=== PATIENT | male | born 1950 | race Caucasian/White ===

== ENCOUNTER 2017-02-16 11:04 | Observation (INO) | payer MEDICARE ==
[2017-02-16 11:13] VITALS: BMI 24.1
[2017-02-16] MEDS ORDERED: ASPIRIN 81 MG CHEWABLE TABLETS PO ONE (12:05)
--- NOTE | 2017-02-16 12:21 | PDOC ---
History of Present Illness - General History Source: Patient, Family Exam Limitations: No Limitations <Mateusz Morse - Last Filed: 02/16/17 14:35> <Aftab Aguila - Last Filed: 02/17/17 09:49> - General Chief Complaint: Chest Pain Stated Complaint: CHEST PAIN,SOB Time Seen by Provider: 02/16/17 12:01 - History of Present Illness Initial Comments: 02/16/17 14:21 The patient is a 66 year old male, accompanied by family member, with a significant past medical history of CHF(EF initially 18% and has improved to 36% ) and MIs (X2), who presents to the emergency department complaining of dizziness earlier this morning. As per family member, the patient woke up feeling fine this morning, but appeared pale and a bit nauseous. Patient reports he was able to bring his granddaughter to school this morning and had no other symptoms at the time. He states when he returned home to shower, he began to feel dizzy. He denies any changes in vision, head trauma, or LOC. As per , the patient was staring off and was diaphoretic. Patient reports taking his CHF medication at 08:00, which is different from when he normally takes it. Patient reports his symptoms lasted approximately 2 hours and have resolved since arriving to the ED. The patient denies any chest pain, shortness of breath, or palpitations. The patient denies any abdominal pain, vomiting, diarrhea, or constipation. The patient denies any dysuria, hematuria, frequency , or urgency. The patient denies any fever, chills, cough, or headache. Allergies: NKDA Past Surgical History: None reported Social History. Former smoker and ETOH use. No recreational drug use. PCP: Dr. Hassan Lamination Operator: Dr. Isaac Bess (Mateusz Morse) Past History <Mateusz Morse - Last Filed: 02/16/17 14:35> - Past Medical History COPD: Yes Hypercholesterolemia: Yes - Surgical History Cholecystectomy: Yes - Psycho/Social/Smoking Cessation Hx Anxiety: No Suicidal Ideation: No Smoking Status: Yes Smoking History: Former smoker Have you smoked in the past 12 months: Yes Number of Cigarettes Smoked Daily: 20 If you are a former smoker, when did you quit?: 2016 Information on smoking cessation initiated: No 'Breaking Loose' booklet given: 07/26/16 Hx Alcohol Use: Yes <Aftab Aguila - Last Filed: 02/17/17 09:49> - Past Medical History Allergies/Adverse Reactions: Allergies Allergy/AdvReac Type Severity Reaction Status Date / Time No Known Allergies Allergy Verified 02/16/17 12:26 Home Medications: Ambulatory Orders Atorvastatin Calcium [Lipitor] 40 mg PO DAILY 04/01/13 Bupropion HCl [Wellbutrin Xl -] 150 mg PO DAILY 02/16/17 Sacubitril/Valsartan [Entresto 97 mg-103 mg Tablet] 1 each PO DAILY 02/16/17 Spironolactone 25 mg PO DAILY 02/16/17 Review of Systems - Review of Systems Able to Perform ROS?: Yes <Mateusz Morse - Last Filed: 02/16/17 14:35> <Aftab Aguila - Last Filed: 02/17/17 09:49> - Review of Systems Comments:: 02/16/17 14:21 CONSTITUTIONAL: Present: +Pale, +Diaphoresis No reported: Fever, Chills, Generalized Weakness, Malaise, Loss of Appetite HEENT: No reported: Rhinorrhea, Nasal Congestion, Throat Pain, Throat Swelling, Difficulty Swallowing, Mouth Swelling, Ear Pain, Eye Pain CARDIOVASCULAR: No reported: Chest Pain, Syncope, Palpitations, Irregular Heart Rate, Lightheadedness, Peripheral Edema RESPIRATORY: No reported: Cough, Shortness of Breath, SOB with Exertion, Orthopnea, Wheezing , Stridor, Hemoptysis GASTROINTESTINAL: Present: + Nausea No reported: Abdominal pain, Abdominal Distension, Vomiting, Diarrhea, Constipation, Melena, Hematochezia GENITOURINARY: No reported: Dysuria, Frequency, Urgency, Hesitancy, Flank Pain, Genital Pain MUSCULOSKELETAL: No reported: Myalgia, Arthralgia, Joint Swelling, Back pain, Neck Pain SKIN: No reported: Rash, Itching, Pallor HEMEATOLOGIC/IMMUNOLOGIC: No reported: Easy Bleeding, Easy Bruising, Lymphadenopathy, Frequent infections ENDOCRINE: No reported: Unexplained Weight Gain, Unexplained Weight Loss, Heat Intolerance , Cold Intolerance NEUROLOGIC: Present: +Dizziness No reported: Headache, Focal Weakness, Paresthesias, Vertigo, Lightheadedness, Unsteady Gait, Seizure, Mental Status Changes, Incontinence PSYCHIATRIC: No reported: Anxiety, Depression (Mateusz Morse) *Physical Exam <Mateusz Morse - Last Filed: 02/16/17 14:35> <Mingo,Aftab - Last Filed: 02/17/17 09:49> - Vital Signs Last Vital Signs Temp Pulse Resp BP Pulse Ox 98.9 F 70 20 102/61 95 02/17/17 02:07 02/17/17 02:07 02/17/17 02:07 02/17/17 02:07 02/16/17 20:40 - Physical Exam Comments: 02/16/17 14:21 GENERAL: The patient is awake, alert, and fully oriented, Nontoxic - in no acute distress. HEAD: Normocephalic, atraumatic. EYES: extraocular movements intact, sclera anicteric, conjunctiva clear. ENT: Normal voice, Moist mucous membranes. NECK: Normal range of motion, supple LUNGS: Breath sounds equal, clear to auscultation bilaterally. No wheezes, no rhonchi, no rales. HEART: Regular rate and rhythm, without murmur, rub or gallop. ABDOMEN: Soft, nontender, normoactive bowel sounds. No guarding, no rebound.No CVA tenderness EXTREMITIES: Normal range of motion, no edema. No clubbing or cyanosis. No cords, erythema, or tenderness. NEUROLOGICAL: No facial assymetry, Normal speech, PSYCH: Normal mood, normal affect. SKIN: Warm, Dry, normal turgor, (Mateusz Morse) Heart Score/ECG Review <Mateusz Morse - Last Filed: 02/16/17 14:35> <Aftab Aguila - Last Filed: 02/17/17 09:49> - ECG Impressions Comment:: Twelve-lead EKG was performed and reviewed by me. There is normal sinus rhythm with a normal rate. Rate of 61 The axis is normal. The intervals are normal. There is normal R wave progression Flipped T waves in 1 and aVL (Aftab Aguila) ED Treatment Course - LABORATORY CBC & Chemistry Diagram: 02/16/17 12:05 02/16/17 12:05 <Mateusz Morse - Last Filed: 02/16/17 14:35> - LABORATORY CBC & Chemistry Diagram: 02/16/17 12:05 02/17/17 05:35 <Aftab Aguila - Last Filed: 02/17/17 09:49> - ADDITIONAL ORDERS Additional order review: 02/16/17 12:05 RBC 4.26 MCV 84.9 MCHC 34.2 RDW 12.6 MPV 7.7 D Neutrophils % 76.4 Lymphocytes % 16.6 D Monocytes % 5.2 Eosinophils % 1.0 D Basophils % 0.8 - RADIOLOGY Radiology Studies Ordered: Category Date Time Status CHEST PA & LAT [RAD] Stat Radiology 02/16/17 12:05 Completed - Medications Given in the ED: ED Medications Discontinued Medications Generic Name Dose Route Start Last Admin Trade Name Freq PRN Reason Stop Dose Admin Aspirin 162 mg 02/16/17 12:05 02/16/17 12:57 Asa - PO 02/16/17 12:06 162 mg ONCE ONE Administration Sodium Chloride 1,000 mls @ 75 mls/hr 02/16/17 18:32 02/16/17 18:34 Normal Saline - IV 02/17/17 07:51 75 mls/hr ASDIR ONE Administration Medical Decision Making <Mateusz Morse - Last Filed: 02/16/17 14:35> <Aftab Aguila - Last Filed: 02/17/17 09:49> - Medical Decision Making 02/16/17 14:35 First call placed to Dr. Santiago at 14:35. Awaiting call back. (Mateusz Morse) 02/16/17 12:43 66y M hx of CAD, CHF EF 38%, presents with episode of lightheadedness, nausea, midl diaphoresis lasting approx 2 hrs, and was told to come to the ED by PMD. pt states he feels well currently, no associated cp, headache, abd pain, back pain, neck pain. on exam pt appears well suspect possible presyncope ?arrythmia, anemia, metabolic dernagement will ck labs pt on cardiac monitro will obtain ekg will d/w cardiology consider observation in light of his significant CHF in the past A portion of this note was documented by scribe services under my direction. I have reviewed the details of the note, within reason, and agree with the documentation with the following case summary and management plan written by me (Aftab Aguila) *DC/Admit/Observation/Transfer <Mateusz Morse - Last Filed: 02/16/17 14:35> - Discharge Dispostion Admit: Yes <Aftab Aguila - Last Filed: 02/17/17 09:49> Diagnosis at time of Disposition: Pre-syncope - Discharge Dispostion Condition at time of disposition: Stable - Referrals - Attestations Scribe Attestion: 02/16/17 14:22 Documentation prepared by Mateusz Morse, acting as medical education manager for Aftab Aguila MD. (Mateusz Morse)
[2017-02-16 12:54] LABS: ALBUMIN 4.3 g/dl (3.4-5.0); ANION GAP 14 (8-16); BILIRUBIN,TOTAL 0.5 mg/dL (0.2-1.0); CO2 24 mmol/L (21-32); COCKROFT - GAULT 51.97; CREATININE 1.2 mg/dL (0.7-1.3); GLUCOSE,RANDOM 153 mg/dL (74-106); MAGNESIUM 2.1 mg/dL (1.8-2.4); SGOT/AST 21 U/L (15-37); SGPT/ALT 38 U/L (12-78)
[2017-02-16 12:56] LABS: ALK PHOS 67 U/L (45-117); TROPONIN I < 0.02 ng/ml (0.00-0.05)
[2017-02-16] MEDS ORDERED: ASPIRIN 81 MG CHEWABLE TABLETS ONE (12:57)
--- NOTE | 2017-02-16 13:03 | CON.CARD ---
Consult Consult Specialty:: Cardiology Referred by:: MART - Aftab Aguila MD Reason for Consultation:: Near syncope - History of Present Illness Chief Complaint: Near syncope History of Present Illness: Patient is a 66 year old male with underlying history of ischemic cardiomyopathy (LVEF 38%), COPD, hypertension and hypercholesterolemia who presented to ED with near without true syncope while eating along with pallor, nausea and diaphoresis. He denies chest pain, palpitations, flushing, visual scotoma, paroxysmal nocturnal dyspnea or orthopnea, or LE edema. Symptoms have since abated, feels back at baseline. - History Source History Provided By: Patient Limitations to Obtaining History: No Limitations - Past Medical History Cardio/Vascular: Yes: CAD, CHF, Hyperlipdemia Pulmonary: Yes: COPD - Past Surgical History Past Surgical History: Yes: Cholecystectomy - Alcohol/Substance Use Hx Alcohol Use: Yes History of Substance Use: reports: None - Smoking History Smoking history: Former smoker Have you smoked in the past 12 months: Yes Aproximately how many cigarettes per day: 20 If you are a former smoker, when did you quit?: 2016 Home Medications - Allergies Allergies/Adverse Reactions: Allergies Allergy/AdvReac Type Severity Reaction Status Date / Time No Known Allergies Allergy Verified 02/16/17 12:26 - Home Medications Home Medications: Ambulatory Orders Atorvastatin Calcium [Lipitor] 40 mg PO DAILY 04/01/13 Bupropion HCl [Wellbutrin Xl -] 150 mg PO DAILY 02/16/17 Sacubitril/Valsartan [Entresto 97 mg-103 mg Tablet] 1 each PO DAILY 02/16/17 Spironolactone 25 mg PO DAILY 02/16/17 Family Disease History - Family Disease History Family Disease History: Diabetes: Mother (Cervical CA at age 70), CA: Father (Lung CA at age 68), Mother, Brother (Throat CA), Sister ( Breast CA) Review of Systems - Review of Systems Constitutional: reports: Diaphoresis Gastrointestinal: reports: Nausea Neurological: reports: Dizziness Vital Signs: Vital Signs Temperature 97.7 F 02/16/17 11:11 Pulse Rate 62 02/16/17 11:11 Respiratory Rate 18 02/16/17 11:11 Blood Pressure 134/61 02/16/17 11:11 O2 Sat by Pulse Oximetry (%) 98 02/16/17 12:22 Constitutional: Yes: No Distress, Calm Neck: Yes: Supple Respiratory: Yes: Regular, CTA Bilaterally Gastrointestinal: Yes: Normal Bowel Sounds, Soft Cardiovascular: Yes: Regular Rate and Rhythm JVD: No Carotid Bruit: No Heart Sounds: Yes: S1, S2 Murmur: Yes: Systolic Murmur, Grade 1 Edema: No - Other Data Labs, Other Data: CBC, BMP 02/16/17 12:05 Troponin, BNP 02/16/17 12:05 Troponin I < 0.02 Troponin, BNP 02/16/17 12:05 Troponin I < 0.02 NSR @ 61 lateral T wave changes Prior Cardiac Procedures: Cardiac Catheterization Ejection Fraction %: LVEF < 40 % Imaging - Results Chest X-ray: Report Reviewed (NAD) Problem List - Problems (1) Pre-syncope Code(s): R55 - SYNCOPE AND COLLAPSE (2) Coronary artery disease Code(s): I25.10 - ATHSCL HEART DISEASE OF [place] CORONARY ARTERY W/O ANG PCTRS Qualifiers: Coronary Disease-Associated Artery/Lesion type: [place] artery [place] vs. transplanted heart: [place] heart Associated angina: without angina Qualified Code(s): I25.10 - Atherosclerotic heart disease of [place] coronary artery without angina pectoris (3) Hypercholesterolemia Code(s): E78.0 - PURE HYPERCHOLESTEROLEMIA * DO NOT USE * (4) Severe left ventricular systolic dysfunction Code(s): I51.9 - HEART DISEASE, UNSPECIFIED (5) Ischemic cardiomyopathy Code(s): I25.5 - ISCHEMIC CARDIOMYOPATHY (6) Old inferolateral myocardial infarction Code(s): I25.2 - OLD MYOCARDIAL INFARCTION (7) COPD (chronic obstructive pulmonary disease) Code(s): J44.9 - CHRONIC OBSTRUCTIVE PULMONARY DISEASE, UNSPECIFIED Qualifiers : COPD type: unspecified COPD Qualified Code(s): J44.9 - Chronic obstructive pulmonary disease, unspecified (8) Hyponatremia Code(s): E87.1 - HYPO-OSMOLALITY AND HYPONATREMIA Assessment/Plan 11/15/2016 MUGA scan: severely reduced LV systolic function with severe inferior , inferoapical, periapical and inferolateral HK, LVEF 38% 07/29/2016 R[facility]LHc at [facility], mildly elevated right sided pressures, 3 vessel CAD (70-80% mid and distal LAD,100% LCx-HL fills via left->left collaterals, 100% mid RCA BULB WEEDER fills via left->right collaterals, severely decreased LVEF 10-15%, mild-mod MR, markedly elevated LVEDP 45 decreased to 26 post NTG, Mynx deployed right [employer]NAGER access site. Will undergo IV diuresis, LifeVest fitting, viability study once euvolemic to assess revascularization options. 1. Near syncope likely neurocardiogenic +/- medication effects 2. Ischemic cardiomyopathy LVEF 38% with h/o failure 3. CAD post [place], angina pectoris 4. HTN/HCVD 5. Hypercholesterolemia 6. Hyponatremia PLAN: 1. Check orthostatic VS, lunchroom monitor to r/o sustained arrhythmias or pauses 2. Continue Aspirin 81 mg, Entresto 97/103 mg bid, carvedilol 12.5 bid, Aldactone 25 qd, Lipitor 40 qd 3. Counselled on abortive manuevers once prodromal symptoms have been experienced. 4. Thank you for consultative opportunity
[2017-02-16 13:10] LABS: BASOPHIL 0.8 % (0-2.0); MCHC 34.2 g/dl (32.0-35.9); MEAN CELL VOLUME 84.9 fl (80-96); MEAN PLT VOLUME 7.7 fl (7.5-11.1); NEUTROPHILS 76.4 % (42.8-82.8); PLATELET COUNT 270 K/MM3 (134-434); RDW 12.6 % (11.9-15.9); WHITE BLOOD COUNT 9.4 K/mm3 (4.0-10.0)
[2017-02-16 13:37] LABS: INR 1.1 (0.82-1.09); PROTHROMBIN TIME (PATIENT) 12.1 SEC (9.98-11.88)
--- NOTE | 2017-02-16 13:46 | EKG ---
Test Reason : Blood Pressure : / mmHG Vent. Rate : 061 BPM Atrial Rate : 061 BPM P-R Int : 160 ms QRS Dur : 100 ms QT Int : 412 ms P-R-T Axes : 054 042 115 degrees QTc Int : 414 ms NORMAL SINUS RHYTHM T WAVE ABNORMALITY, CONSIDER LATERAL ISCHEMIA ABNORMAL ECG WHEN COMPARED WITH ECG OF 26-JUL-2016 09:27, PREMATURE VENTRICULAR COMPLEXES ARE NO LONGER PRESENT T WAVE INVERSION NO LONGER EVIDENT IN ANTERIOR LEADS QT HAS SHORTENED Confirmed by ABELARDO LIZ MD ([id number]) on 02/16/2017 1:46:34 PM Referred By: Confirmed By:ABELARDO LIZ MD
[2017-02-16] MEDS ORDERED: SODIUM CHLORIDE 1,000 ML IV ONE (18:32)
[2017-02-16] MEDS ORDERED: PNEUMOC 13-VAL CONJ-DIP CRM/PF 0.5 ML DISP.SYRIN IM ONE (21:02)
[2017-02-16] MEDS ORDERED: ATORVASTATIN CA 40 MG TABLET (FP) PO SCH (22:00)
[2017-02-16] MEDS: CARVEDILOL 12.5 MG TABLET (FP) PO SCH (23:00)
[2017-02-16] MEDS: SACUBITRIL/VALSARTAN 97 MG-103 MG TABLET PO SCH (23:00)
[2017-02-17 07:53] LABS: CALCIUM 8.8 mg/dL (8.5-10.1); COCKROFT - GAULT 56.95; CREATININE 1.1 mg/dL (0.7-1.3); THYROID STIMULATING HORMONE 1.75 uIU/ml (0.358-3.74)
[2017-02-17] MEDS ORDERED: ASPIRIN 81 MG CHEWABLE TABLETS PO SCH (10:00)
[2017-02-17] MEDS ORDERED: SPIRONOLACTONE 25 MG TABLET (FP) PO SCH (10:00)
[2017-02-17] MEDS: CARVEDILOL 12.5 MG TABLET (FP) PO SCH (10:05)
[2017-02-17] MEDS: SACUBITRIL/VALSARTAN 97 MG-103 MG TABLET PO SCH (10:07)
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
--- NOTE | 2017-02-17 11:01 | PN ---
Progress Note (short form) - Note Progress Note: appreciate cardiac input patietn with no complaints no CP /SOB/ Lightheadedness patient was ambulating in the hallway thia am - asymptomatic monitoring analyst no significant arrhythmia (pairs and PVCs) Vital Signs Period Temp Pulse Resp BP Sys/[place] Pulse Ox Last 24 Hr 97.7 F-98.9 F 58-70 18-20 102-139/60-75 95-100 neck supple heart reg S1/S2 lungs clear bilat abd soft non tender ext no edema / no calf tenderness CBC, BMP 02/16/17 12:05 02/17/17 05:35 Active Medications Aspirin (Asa -) 81 mg PO DAILY [facility] Last Admin: 02/17/17 10:05 Dose: 81 mg Atorvastatin Calcium (Lipitor -) 40 mg PO HS [facility] Last Admin: 02/16/17 23:00 Dose: 40 mg Carvedilol (Coreg -) 12.5 mg PO BID [facility] Last Admin: 02/17/17 10:05 Dose: 12.5 mg Spironolactone (Aldactone -) 25 mg PO DAILY [facility] Last Admin: 02/17/17 10:07 Dose: Not Given Entresto 97/103 information per Cardio 11/15/2016 MUGA scan: severely reduced LV systolic function with severe inferior , inferoapical, periapical and inferolateral HK, LVEF 38% 07/29/2016 R&LHc at [facility], mildly elevated right sided pressures, 3 vessel CAD (70-80% mid and distal LAD,100% LCx-HL fills via left->left collaterals, 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 Will undergo IV diuresis, LifeVest fitting, viability study once euvolemic to assess revascularization options. 1. Near syncope likely neurocardiogenic +/- medication effects 2. Ischemic cardiomyopathy LVEF 38% with h/o failure 3. 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 HTN/HCVD 5. Hypercholesterolemia 6. Hyponatremia PLAN: 1. Check orthostatic VS, monitoring analyst to r/o sustained arrhythmias or pauses 2. Continue Aspirin 81 mg, Entresto 97/103 mg bid, carvedilol 12.5 bid, Aldactone 25 qd, Lipitor 40 qd 3. Counselled on abortive manuevers once prodromal symptoms have been experienced. 4. Thank you for consultative opportunity Care discussed with Dr Camacho he will re asses patiet with plans for probable d/c today Problem List - Problems (1) Hyponatremia Code(s): E87.1 - HYPO-OSMOLALITY AND HYPONATREMIA (2) Ischemic cardiomyopathy Code(s): I25.5 - ISCHEMIC CARDIOMYOPATHY (3) Pre-syncope Code(s): R55 - SYNCOPE AND COLLAPSE (4) Acute left ventricular failure Code(s): I50.1 - LEFT VENTRICULAR FAILURE
--- NOTE | 2017-02-17 15:49 | DS ---
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 Will undergo IV diuresis, LifeVest fitting, viability study once euvolemic to assess revascularization options. 1. Near syncope likely neurocardiogenic +/- medication effects 2. Ischemic cardiomyopathy LVEF 38% with h/o failure 3. 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 HTN/HCVD 5. Hypercholesterolemia 6. Hyponatremia Hopsital stay unremarkable telemetry no significant arhythmia Patient was treated with IV NS @ low hidration for correction of hyponatremia He tolerated IV fluids well, no chf. Na this am 133 from 127. Case discussed with Cardiology will continue current medications and have follow up next week at office . Constitutional: Yes: Well Nourished, No Distress, Calm Eyes: Yes: WNL, Conjunctiva Clear, EOM Intact HENT: Yes: WNL, Atraumatic, Normocephalic Neck: Yes: WNL, Supple, Trachea Midline Cardiovascular: Yes: WNL, Regular Rate and Rhythm Respiratory: Yes: WNL, Regular, CTA Bilaterally Gastrointestinal: Yes: WNL, Normal Bowel Sounds ...Rectal Exam: Yes: WNL Renal/: Yes: WNL Breast(s): Yes: WNL Musculoskeletal: Yes: WNL Extremities: Yes: WNL Edema: No Peripheral Pulses: Right Radial: 2+, Left Doralis Pedis: 2+, Right Dorsalis Pedis: 2+, Left Femoral: 2+, Right Femoral: 2+ Integumentary: Yes: WNL Neurological: Yes: WNL, Alert, Oriented ...Motor Strength: WNL Psychiatric: Yes: WNL, Alert, Oriented Labs: CBC, BMP 02/17/17 05:35 Discharge Summary Reason For Visit: PRE SYNCOPE Current Active Problems Hyponatremia (Acute) Ischemic cardiomyopathy (Acute) Lightheadedness (Acute) Old inferolateral myocardial infarction (Acute) Pre-syncope (Acute) Condition: Stable - Instructions Referrals: Best Hassan [Primary Care Provider] - Disposition: HOME - Home Medications Comprehensive Discharge Medication List: Ambulatory Orders Atorvastatin Calcium [Lipitor] 40 mg PO DAILY 04/01/13 Bupropion HCl [Wellbutrin Xl -] 150 mg PO DAILY 02/16/17 Sacubitril/Valsartan [Entresto 97 mg-103 mg Tablet] 1 each PO DAILY 02/16/17 Spironolactone 25 mg PO DAILY 02/16/17 Aspirin [ASA -] 81 mg PO DAILY tab.chew 02/17/17 Atorvastatin Ca [Lipitor] 40 mg PO HS tablet 02/17/17 Carvedilol [Coreg -] 12.5 mg PO BID tablet 02/17/17 Sacubitril/Valsartan [Entresto 97 mg-103 mg Tablet] 1 tab PO BID tablet Spironolactone [Aldactone -] 25 mg PO DAILY tablet 02/17/17
[2017-02-17 16:22] VITALS: BP 107/54; PULSE 57; TEMP 98.2
== END 2017-02-17 16:51 | disposition home or self-care (01) ==
LOC: JER 11:04 → JERBED 14:40 → J4W 19:20
PROVIDERS: ADMIT Family Medicine; ATTEND Family Medicine
PROC: 3E0337Z Introduction of Electrolytic and Water Balance Substance into Peripheral Vein, Percutaneous Approach (ICD-10-PCS; principal; 2017-02-16)
DX: R55 Syncope and collapse (principal); I25.5 Ischemic cardiomyopathy; I50.9 Heart failure, unspecified; I25.2 Old myocardial infarction; I10 Essential (primary) hypertension; I25.10 Atherosclerotic heart disease of native coronary artery without angina pectoris; I50.1 Left ventricular failure, unspecified; I51.9 Heart disease, unspecified; J44.9 Chronic obstructive pulmonary disease, unspecified; E78.00 Pure hypercholesterolemia, unspecified; E87.1 Hypo-osmolality and hyponatremia; Z87.891 Personal history of nicotine dependence
CPT/HCPCS: 36415; 71020-TC; 80048; 80053; 80061; 82550; 83036; 83721; 83735; 84443; 84484; 85025; 85610; 93005; 93010; 99285-25; G0378

== ENCOUNTER 2022-01-02 22:18 | Inpatient (IN) | payer OTHER ==
[2022-01-02] MEDS ORDERED: CEFTRIAXONE 1 GM in DEXTROSE 5%-WATER - 100 ML IVPB ONE (23:03)
[2022-01-02] MEDS ORDERED: SODIUM CHLORIDE 0.9% 1000 ML INFUS.BAG IV ONE (23:04)
[2022-01-02] MEDS ORDERED: ACETAMINOPHEN 1000 MG/100 ML BAG IVPB ONE (23:06)
[2022-01-02 23:37] LABS: EPI CELLS 31 /uL (0-25.1); HYALINE CASTS 2 /uL (0-3.1); URINE APPEARANCE CLEAR; URINE BACTERIA 22 /uL (0-1359); URINE BILIRUBIN NEGATIVE (NEGATIVE); URINE COLOR YELLOW; URINE GLUCOSE (UA) NEGATIVE (NEGATIVE); URINE KETONE TRACE (NEGATIVE); URINE LEUK ESTERASE 2+ (NEGATIVE); URINE NITRITE NEGATIVE (NEGATIVE); URINE PROTEIN NEGATIVE (NEGATIVE); URINE RBC 12 /uL (0-23.9); URINE WBC 385 /uL (0-25.8)
[2022-01-02 23:55] LABS: BASO % 0.3 % (0-2.0); EOS % 0.2 % (0-4.5); HEMATOCRIT 32.6 % (35.4-49); HEMOGLOBIN 11.1 GM/dL (11.7-16.9); MCH 29.1 pg (25.7-33.7); MCHC 34.1 g/dl (32.0-35.9); MEAN CELL VOLUME 85.3 fl (80-96); MONO % 8.8 % (3.8-10.2); NEUT % 82.7 % (42.8-82.8); PLATELET COUNT 208 10^3/uL (134-434); RBC 3.82 M/mm3 (4.00-5.60); RDW 13.5 % (11.9-15.9); WHITE BLOOD COUNT 14.6 K/mm3 (4.0-10.0)
[2022-01-03 00:02] LABS: INR 1.3 (0.83-1.09)
[2022-01-03 00:05] LABS: ACTIVATED PTT 30.1 SECONDS (25.2-36.5)
[2022-01-03 00:10] LABS: CHLORIDE 101 mmol/L (98-107); SODIUM 137 mmol/L (136-145)
[2022-01-03] MEDS ORDERED: CEFTRIAXONE 1 GM/50 ML BAG ONE (00:11)
[2022-01-03] MEDS ORDERED: ACETAMINOPHEN INJECTION 100 ML IVPB ONE (00:11)
[2022-01-03 00:12] LABS: ALBUMIN 3.6 g/dl (3.4-5.0); ANION GAP 7 MMOL/L (8-16); CO2 28 mmol/L (21-32); GLUCOSE,RANDOM 167 mg/dL (74-106)
[2022-01-03 00:13] LABS: BLOOD UREA NITROGEN 18.8 mg/dL (7-18)
[2022-01-03 00:15] LABS: SGPT/ALT 35 U/L (13-61)
[2022-01-03 00:16] LABS: CREATININE 1.2 mg/dL (0.55-1.3); SGOT/AST 18 U/L (15-37)
[2022-01-03 00:17] LABS: BILIRUBIN,TOTAL 0.6 mg/dL (0.2-1); TOT PROT 6.6 g/dl (6.4-8.2)
[2022-01-03 00:18] LABS: ALK PHOS 61 U/L (45-117)
[2022-01-03] MEDS ORDERED: DEXTROSE 5%-0.45% SALINE 1,000 ML IV SCH (03:00)
[2022-01-03 06:28] VITALS: BMI 23.6
[2022-01-03] MEDS: DEXTROSE 5%-0.45% SALINE 1,000 ML IV SCH (06:43)
[2022-01-03] MEDS: INSULIN SLIDING SCALE (NOVOLOG) 1 VIAL SQ SCH ×2 (08:42→17:08)
[2022-01-03] MEDS: CARVEDILOL 12.5 MG TABLET (FP) PO SCH ×3 (09:42→21:48)
[2022-01-03] MEDS: SPIRONOLACTONE 25 MG TABLET PO SCH (09:42)
[2022-01-03] MEDS: ENOXAPARIN NA (PORCINE) 40 MG/0.4 ML DISP.SYRIN SQ SCH (09:42)
[2022-01-03] MEDS: ASPIRIN COATED 81 MG TABLET.EC PO SCH (09:43)
[2022-01-03] MEDS: PANTOPRAZOLE 40 MG TABLET PO SCH (09:43)
[2022-01-03] MEDS ORDERED: SACUBITRIL/VALSARTAN 97 MG-103 MG TABLET PO SCH (10:00)
[2022-01-03] MEDS ORDERED: cefTRIAXone SODIUM 1 GM VIAL ONE (12:00)
[2022-01-03] MEDS ORDERED: DEXTROSE 5%-WATER - 50 ML IVPB ONE (12:00)
[2022-01-03] MEDS: CEFTRIAXONE 1 GM in DEXTROSE 5%-WATER - 50 ML IVPB SCH (12:02)
[2022-01-03] MEDS ORDERED: ACETAMINOPHEN 325 MG TABLET (FP) PO PRN (21:35)
[2022-01-03] MEDS: ATORVASTATIN CA 40 MG TABLET (FP) PO SCH (21:41)
[2022-01-03] MEDS: SACUBITRIL/VALSARTAN 97 MG-103 MG TABLET PO SCH (23:14)
[2022-01-04] MEDS: DEXTROSE 5%-0.45% SALINE 1,000 ML IV SCH ×2 (04:24→23:22)
[2022-01-04] MEDS: INSULIN SLIDING SCALE (NOVOLOG) 1 VIAL SQ SCH ×2 (06:03→16:54)
[2022-01-04 08:37] LABS: BASO % 0.5 % (0-2.0); EOS % 0.6 % (0-4.5); HEMATOCRIT 33.7 % (35.4-49); HEMOGLOBIN 11.6 GM/dL (11.7-16.9); LYMPH % 12.3 % (8-40); MCH 29.3 pg (25.7-33.7); MCHC 34.5 g/dl (32.0-35.9); MEAN CELL VOLUME 84.8 fl (80-96); MEAN PLT VOLUME 8.4 fl (7.5-11.1); MONO % 8.7 % (3.8-10.2); NEUT % 77.9 % (42.8-82.8); PLATELET COUNT 192 10^3/uL (134-434); RBC 3.97 M/mm3 (4.00-5.60); RDW 13.6 % (11.9-15.9); WHITE BLOOD COUNT 12.5 K/mm3 (4.0-10.0)
[2022-01-04 08:59] LABS: CALCIUM 8.1 mg/dL (8.5-10.1)
[2022-01-04 09:03] LABS: CREATININE 1.1 mg/dL (0.55-1.3)
[2022-01-04] MEDS ORDERED: cefTRIAXone SODIUM 1 GM VIAL ONE (09:39)
[2022-01-04] MEDS ORDERED: DEXTROSE 5%-WATER - 50 ML IVPB ONE (09:39)
[2022-01-04] MEDS: CEFTRIAXONE 1 GM in DEXTROSE 5%-WATER - 50 ML IVPB SCH (09:41)
[2022-01-04] MEDS: PANTOPRAZOLE 40 MG TABLET PO SCH (09:42)
[2022-01-04] MEDS: ENOXAPARIN NA (PORCINE) 40 MG/0.4 ML DISP.SYRIN SQ SCH (09:42)
[2022-01-04] MEDS: ASPIRIN COATED 81 MG TABLET.EC PO SCH (09:42)
[2022-01-04] MEDS: CARVEDILOL 12.5 MG TABLET (FP) PO SCH ×2 (09:42→21:49)
[2022-01-04] MEDS: SACUBITRIL/VALSARTAN 97 MG-103 MG TABLET PO SCH ×2 (09:42→22:14)
[2022-01-04] MEDS: SPIRONOLACTONE 25 MG TABLET PO SCH (09:42)
[2022-01-04] MEDS: ATORVASTATIN CA 40 MG TABLET (FP) PO SCH (21:49)
[2022-01-05] MEDS: INSULIN SLIDING SCALE (NOVOLOG) 1 VIAL SQ SCH ×2 (07:52→17:04)
[2022-01-05] MEDS ORDERED: DEXTROSE 5%-WATER - 50 ML IVPB ONE (10:18)
[2022-01-05] MEDS ORDERED: cefTRIAXone SODIUM 1 GM VIAL ONE (10:18)
[2022-01-05] MEDS: PANTOPRAZOLE 40 MG TABLET PO SCH (10:23)
[2022-01-05] MEDS: CARVEDILOL 12.5 MG TABLET (FP) PO SCH ×2 (10:23→21:35)
[2022-01-05] MEDS: DEXTROSE 5%-0.45% SALINE 1,000 ML IV SCH ×2 (10:23→21:35)
[2022-01-05] MEDS: SPIRONOLACTONE 25 MG TABLET PO SCH (10:23)
[2022-01-05] MEDS: ASPIRIN COATED 81 MG TABLET.EC PO SCH (10:23)
[2022-01-05 10:24] LABS: HEMATOCRIT 31.8 % (35.4-49); HEMOGLOBIN 11.1 GM/dL (11.7-16.9); MCH 29.5 pg (25.7-33.7); MCHC 34.8 g/dl (32.0-35.9); MEAN CELL VOLUME 84.8 fl (80-96); MEAN PLT VOLUME 8.6 fl (7.5-11.1); PLATELET COUNT 206 10^3/uL (134-434); RBC 3.75 M/mm3 (4.00-5.60); RDW 13.4 % (11.9-15.9); WHITE BLOOD COUNT 6.9 K/mm3 (4.0-10.0)
[2022-01-05] MEDS: CEFTRIAXONE 1 GM in DEXTROSE 5%-WATER - 50 ML IVPB SCH (10:24)
[2022-01-05] MEDS: ENOXAPARIN NA (PORCINE) 40 MG/0.4 ML DISP.SYRIN SQ SCH (10:24)
[2022-01-05] MEDS: SACUBITRIL/VALSARTAN 97 MG-103 MG TABLET PO SCH ×2 (10:25→21:35)
[2022-01-05 10:49] LABS: CALCIUM 8.5 mg/dL (8.5-10.1)
[2022-01-05 10:50] LABS: BLOOD UREA NITROGEN 10.9 mg/dL (7-18)
[2022-01-05 11:30] LABS: ANISOCYTOSIS 0; MACROCYTOSIS 0
[2022-01-05] MEDS: ATORVASTATIN CA 40 MG TABLET (FP) PO SCH (21:35)
[2022-01-06] MEDS: DEXTROSE 5%-0.45% SALINE 1,000 ML IV SCH (06:47)
[2022-01-06] MEDS: INSULIN SLIDING SCALE (NOVOLOG) 1 VIAL SQ SCH (06:48)
[2022-01-06 09:11] LABS: BLOOD UREA NITROGEN 6.6 mg/dL (7-18); CALCIUM 8.1 mg/dL (8.5-10.1)
[2022-01-06 09:15] LABS: CREATININE 0.9 mg/dL (0.55-1.3); EOS % 3.3 % (0-4.5); HEMOGLOBIN 10.7 GM/dL (11.7-16.9); LYMPH % 25.4 % (8-40); MCH 29.2 pg (25.7-33.7); MCHC 34.3 g/dl (32.0-35.9); MEAN CELL VOLUME 85.1 fl (80-96); MEAN PLT VOLUME 8.3 fl (7.5-11.1); MONO % 13.4 % (3.8-10.2); NEUT % 56.9 % (42.8-82.8); PLATELET COUNT 234 10^3/uL (134-434); RBC 3.65 M/mm3 (4.00-5.60); RDW 13.1 % (11.9-15.9)
[2022-01-06] MEDS ORDERED: DEXTROSE 5%-WATER - 50 ML IVPB ONE (09:22)
[2022-01-06] MEDS ORDERED: cefTRIAXone SODIUM 1 GM VIAL ONE (09:22)
[2022-01-06 09:26] VITALS: BP 115/67; PULSE 53; TEMP 97.9
[2022-01-06] MEDS: ENOXAPARIN NA (PORCINE) 40 MG/0.4 ML DISP.SYRIN SQ SCH (09:35)
[2022-01-06] MEDS: SPIRONOLACTONE 25 MG TABLET PO SCH (09:36)
[2022-01-06] MEDS: CARVEDILOL 12.5 MG TABLET (FP) PO SCH (09:36)
[2022-01-06] MEDS: PANTOPRAZOLE 40 MG TABLET PO SCH (09:36)
[2022-01-06] MEDS: SACUBITRIL/VALSARTAN 97 MG-103 MG TABLET PO SCH (09:36)
[2022-01-06] MEDS: ASPIRIN COATED 81 MG TABLET.EC PO SCH (09:36)
[2022-01-06] MEDS ORDERED: CEFPODOXIME PROXETIL 200 MG TABLET [NF] PO SCH (10:00)
== END 2022-01-06 10:20 | disposition home or self-care (01) | DRG 690 ==
LOC: JER 22:18 → JERBED 01-03 01:34 → OBSVTOIN 01-03 02:43 → J5S 01-03 06:05
PROVIDERS: ADMIT Internal Medicine; ATTEND Internal Medicine
DX: N39.0 Urinary tract infection, site not specified (principal); I50.22 Chronic systolic (congestive) heart failure; J44.9 Chronic obstructive pulmonary disease, unspecified; N40.0 Benign prostatic hyperplasia without lower urinary tract symptoms; E78.5 Hyperlipidemia, unspecified; I11.0 Hypertensive heart disease with heart failure; M62.81 Muscle weakness (generalized); I25.10 Atherosclerotic heart disease of native coronary artery without angina pectoris; I25.5 Ischemic cardiomyopathy; I25.2 Old myocardial infarction; E11.9 Type 2 diabetes mellitus without complications; F32.A Depression, unspecified; F41.9 Anxiety disorder, unspecified; B96.20 Unspecified Escherichia coli [E. coli] as the cause of diseases classified elsewhere
CPT/HCPCS: 36415; 71045-TC-FY; 76775-TC; 76856-TC; 80048; 80053; 81003; 82550; 82553; 82962; 83036; 83605; 85025; 85610; 85730; 86850; 86900; 86901; 87040; 87086; 87186; 93005; 93010; 97116-GP; 97161-GP; 99285-25; C9803-CS; G0378; U0003; U0005

== ENCOUNTER 2023-01-04 04:00 | Day surgery (SDC) | payer OTHER ==
[2023-01-03 15:31] VITALS: BMI 24.7
[~2023-01-04 04:00] MED LIST: ceFAZolin SODIUM 1 GM VIAL IVPB ONE
[2023-01-04] MEDS ORDERED: BUPIVACAINE HCL/PF 0.5% (5MG/ML) 10 ML VIAL ONE ×2 (09:37→09:57)
[2023-01-04] MEDS ORDERED: MIDAZOLAM HCL 2 MG/2 ML SINGLE DOSE VIAL ONE (09:47)
[2023-01-04] MEDS ORDERED: PROPOFOL 20 ML ONE (09:47)
[2023-01-04] MEDS ORDERED: LIDOCAINE 1%/EPI 1:100000 (20 ML MULTI DOSE VIAL) PNB ONE (10:05)
[2023-01-04] MEDS ORDERED: BUPIVACAINE HCL/PF 0.5% (5MG/ML) 10 ML VIAL NR ONE (10:05)
[2023-01-04] MEDS ORDERED: ceFAZolin SODIUM 1 GM VIAL IVPB ONE (10:07)
[2023-01-04] MEDS ORDERED: oxyCODONE HCL 5 MG TABLET PO PRN (10:28)
[2023-01-04] MEDS ORDERED: ACETAMINOPHEN 500 MG TABLET (FP) PO PRN (10:28)
[2023-01-04 11:45] VITALS: RESP 20; TEMP 96.4
[2023-01-04 12:27] VITALS: BP 126/49; PULSE 60
== END 2023-01-04 14:06 | disposition home or self-care (01) ==
LOC: JASU-SURG 04:00
PROVIDERS: ATTEND Orthopaedic Surgery
PROC: 0SBC4ZZ Excision of Right Knee Joint, Percutaneous Endoscopic Approach (ICD-10-PCS; principal; 2023-01-04 09:30)
DX: S83.231A Complex tear of medial meniscus, current injury, right knee, initial encounter (principal); X58.XXXA Exposure to other specified factors, initial encounter; Y93.9 Activity, unspecified; Y92.9 Unspecified place or not applicable; Y99.9 Unspecified external cause status
CPT/HCPCS: 94760

== ENCOUNTER 2024-07-24 12:19 | Emergency (ER) | payer OTHER ==
[2024-07-24 12:51] VITALS: BP 136/67; PULSE 56; RESP 16; TEMP 98.8; BMI 24.8
== END 2024-07-24 16:38 | disposition home or self-care (01) ==
LOC: JERFT 12:19
DX: S63.501A Unspecified sprain of right wrist, initial encounter (principal); R42 Dizziness and giddiness; W01.0XXA Fall on same level from slipping, tripping and stumbling without subsequent striking against object, initial encounter
CPT/HCPCS: 73110-TC-RT-FY; 99283-25

== ENCOUNTER 2025-02-06 05:57 | Day surgery (SDC) | payer OTHER ==
[2025-02-05 14:15] VITALS: BMI 25.7
[2025-02-06 07:25] VITALS: TEMP 98
[2025-02-06 08:29] VITALS: PULSE 57
[2025-02-06 08:31] VITALS: BP 125/56; RESP 13
== END 2025-02-06 09:00 | disposition home or self-care (01) ==
LOC: JASU-ENDO 05:57
PROVIDERS: ATTEND Internal Medicine Gastroenterology
PROC: 0DJD8ZZ Inspection of Lower Intestinal Tract, Via Natural or Artificial Opening Endoscopic (ICD-10-PCS; principal; 2025-02-06 07:30)
DX: Z12.11 Encounter for screening for malignant neoplasm of colon (principal)

== ENCOUNTER 2025-04-10 06:57 | Day surgery (SDC) | payer OTHER ==
[2025-04-09 11:03] VITALS: BMI 26.4
[2025-04-10] MEDS ORDERED: MIDAZOLAM HCL 2 MG/2 ML SINGLE DOSE VIAL ONE (08:39)
[2025-04-10 09:19] VITALS: TEMP 98.2
[2025-04-10 11:14] VITALS: BP 133/8; PULSE 55; RESP 14
== END 2025-04-10 11:00 | disposition home or self-care (01) ==
LOC: JASU-ENDO 06:57
PROVIDERS: ATTEND Internal Medicine Gastroenterology
PROC: 0DB78ZX Excision of Stomach, Pylorus, Via Natural or Artificial Opening Endoscopic, Diagnostic (ICD-10-PCS; 2025-04-10)
PROC: 0DB68ZX Excision of Stomach, Via Natural or Artificial Opening Endoscopic, Diagnostic (ICD-10-PCS; principal; 2025-04-10 08:00)
DX: K29.50 Unspecified chronic gastritis without bleeding (principal); B96.81 Helicobacter pylori [H. pylori] as the cause of diseases classified elsewhere; K44.9 Diaphragmatic hernia without obstruction or gangrene
CPT/HCPCS: 88305-TC; 88341-TC; 88342-TC